=== PATIENT | male | born 1970 | race African-American/Black ===

== ENCOUNTER 2018-05-10 18:21 | Emergency (ER) | payer BC ==
[~2018-05-10] VITALS: Ht 177.8 cm; Wt 74.8 kg
[~2018-05-10 18:21] MED LIST: HYDROCHLOROTHIA25 MG ORAL; IBUPROFEN600 MG ORAL; VICODIN 5-5001 EACH PO
[2018-05-10 18:45] VITALS: BP 135/98
--- NOTE | 2018-05-10 18:45 | NUR ---
ED Nurse Note: Pt c/o right shoulder pain nd swelling after falling into it. Noted obvious dislocation and pt in severa pain. No respiratory distress. Pt is AAO x4, VSS.
--- NOTE | 2018-05-10 19:09 | NUR ---
HAND-OFF: Report given to Domingo Gonzalez RN.
[2018-05-10] MEDS ORDERED: Morphine Sulfate 4mg/ml Inj (IV USE ONLY) IVP ONE (19:15)
--- NOTE | 2018-05-10 19:16 | Emergency Room Report ---
History of Present Illness General Chief Complaint: Upper Extremity Injury Source: Patient Present Illness HPI patient fell before he arrived. fell on outstretched hand. complains of severe right shoulder pain. feels as if it is dislocated. no numbess, tingling Allergies: Coded Allergies: No Known Allergies (Unverified , 07/06/12) Patient History Past Medical History: none Past Surgical History: none Nursing Documentation-PMH Past Medical History: No History, Except For Hx Hypertension: Yes Review of Systems All Other Systems: negative except mentioned in HPI Physical Exam Vital Signs Date Time Temp Pulse Resp B/P (MAP) Pulse Ox O2 Delivery O2 Flow Rate FiO2 05/10/18 18:26 97.5 80 18 162/107 98 Room Air General Appearance: well appearing, no apparent distress Head: normocephalic, atraumatic ENT: hearing grossly normal, normal voice Neck: full range of motion, supple Respiratory: no respiratory distress, speaking full sentences Gastrointestinal: non tender, no mass Musculoskeletal: other - tenderness to right shoulder. distal NV intact Procedures Joint Reduction Joint Reduction : Consent: Verbal Joint Reduction Site: shoulder (R) Procedural Sedation: Yes Reduction Attempts: One Pre-Procedure NV Exam: Yes Post-Procedure NV Exam: Yes Post Joint Reduction Film: joint reduced Patient Tolerated: Well Procedural Sedation Consent: Verbal Pre-Sedation Assessment: Eval. Immed. Prior to Sed, Pre-proc Edu. done, Plan for Sedation Discuss Airway Assessment (Malampati): I Heart: normal Lungs: normal Procedures/Plans: Closed Reduction Plan for Moderate Sedation: Other - etomidate ASA Score: I Start Time: 20:55 End Time: 21:03 Communication: No Apparent Limitation Mental Status: Awake Respiration: Unlabored Skin Condition: WNL Medical Decision Making Diagnostic Impression: Primary Impression: Shoulder dislocation ER Course Patient was emergently seen and evaluated. X-ray was reviewed. Patient was given IV morphine for pain. After discussion the risk and benefits of conscious sedation, etomidate was used, 20mg. the patient did have conscious sedation. Please see my procedure note for this. I was able to reduce the shoulder successfully using traction countertraction. Repeat x-ray was noted to have a reduced successfully. Last Vital Signs Date Time Temp Pulse Resp B/P (MAP) Pulse Ox O2 Delivery O2 Flow Rate FiO2 05/10/18 18:45 97.5 83 19 135/98 97 Room Air Status: improved Disposition: HOME, SELF-CARE Condition: Stable Scripts Hydrocodone Bit/Acetaminophen 5-325* (NORCO 5-325*) 1 Each Tablet 1 TAB ORAL Q6H PRN for For Pain, #20 TAB 0 Refills Prov: DAVID CORDERO 05/10/18 Patient Instructions: How to Use a Shoulder Immobilizer DAVID CORDERO May 10, 2018 19:16
--- NOTE | 2018-05-10 20:52 | NUR ---
ED Nurse Note: Moderate Sedation initiated with JOANN Nogueira. Consent form signed. See intervention
[2018-05-10 20:53] VITALS: BP 145/100
--- NOTE | 2018-05-10 21:15 | NUR ---
ER DISCHARGE NOTE: Patient is cleared to be discharged per ERMD, pt is aox4, on room air, with stable vital signs. pt was given dc and prescription instructions, pt was able to verbalize understanding, pt id band and iv site removed without complications. pt is able to ambulate with steady gait. pt took all belongings. Addendum: 05/10/18 at 2331 by LCRISOSTOM Pt DC [id number]
[2018-05-10] MEDS ORDERED: NORCO 5-325 TA1 EACH ORAL (21:51)
[2018-05-10] MEDS ORDERED: Etomidate 40mg/20ml Inj IV ONE ×2 (22:00→22:36)
[2018-05-10 22:15] VITALS: BP 146/98
--- NOTE | 2018-05-11 15:40 | Diagnostic Imaging Report ---
Indication: Pain, status post fall Technique: 2 views of the right shoulder Comparison: none Findings: There is an anterior right shoulder dislocation. Tiny ossific density projects adjacent to the glenoid. Impression: Positive for right shoulder dislocation. This was evidently recognized by the emergency room physician, as there is a subsequent postreduction imaging available Small calcific density adjacent to the glenoid. This could represent a small fracture fragment, versus a focus of calcific tendinosis.
--- NOTE | 2018-05-11 15:42 | Diagnostic Imaging Report ---
Indication: Status post reduction of dislocated shoulder; pain Technique: 2 views of the right shoulder Comparison: 1 1/2 hours earlier Findings: Interim reduction of previously demonstrated right shoulder dislocation. Previously demonstrated calcific density is no longer evident. Impression: Satisfactory reduction of previously demonstrated right shoulder dislocation
== END 2018-05-10 21:15 | disposition home or self-care (01) ==
LOC: EMR 18:45
DX: M24.311 Pathological dislocation of right shoulder, not elsewhere classified (principal)
CPT/HCPCS: 73020; 96374; 96375; 99283; J2270; J2405